=== PATIENT | female | born 1960 | race Caucasian/White ===

== ENCOUNTER 2016-12-28 12:01 | Observation (INO) | payer BC ==
[~2016-12-28] VITALS: Ht 165.1 cm; Wt 91.2 kg
[2016-12-29] MEDS ORDERED: QVAR8.7 G1 IH (16:20)
[2016-12-29] MEDS ORDERED: PROAIR HFA8.5 GM IH (16:20)
[2016-12-29] MEDS ORDERED: DOXYCYCLINE HY100 M2 PO (16:21)
[2016-12-29] MEDS ORDERED: ZOFRAN ODT4 MG SL (16:21)
[2016-12-29] MEDS ORDERED: TROKENDI XR50 MG PO (16:22)
[2016-12-29] MEDS ORDERED: FERROUS SULFAT325 MG PO (16:22)
== END 2016-12-29 16:37 | disposition home or self-care (01) ==
LOC: MED 12:01
PROVIDERS: ADMIT Internal Medicine
DX: K57.30 Diverticulosis of large intestine without perforation or abscess without bleeding (principal); K44.9 Diaphragmatic hernia without obstruction or gangrene; D64.9 Anemia, unspecified; M19.90 Unspecified osteoarthritis, unspecified site; E66.9 Obesity, unspecified; Z87.891 Personal history of nicotine dependence; Z88.2 Allergy status to sulfonamides; Z79.82 Long term (current) use of aspirin; Z79.899 Other long term (current) drug therapy; Z90.49 Acquired absence of other specified parts of digestive tract; Z98.890 Other specified postprocedural states
CPT/HCPCS: 96374; G0378; J2704; P9021